=== PATIENT | female | born 1945 | race Caucasian/White ===

== ENCOUNTER 2020-04-27 22:18 | Emergency (ER) | payer MEDICARE, BC ==
[2020-04-27] MEDS ORDERED: Simethicone 80 MG Tab.Chew PO ONE (22:42)
--- NOTE | 2020-04-27 22:48 | EDM.PDOC ---
ED HPI GENERAL MEDICAL PROBLEM - General Chief Complaint: Gastrointestinal Problem Stated Complaint: NAUSEA Time Seen by Provider: 04/27/20 22:35 Source of Information: Reports: Patient, Family History Limitations: Reports: No Limitations - History of Present Illness INITIAL COMMENTS - FREE TEXT/NARRATIVE: Patient presents the ER today with chief complaint of generalized abdominal pain she rates about a 6 out of 10 that started about 330 or 4:00 today about 20 to 30 minutes after eating some blueberry pie. She describes it as intermittent pain that comes and goes it may last anywhere from 30 minutes to hour and then goes back down to about a 3 out of 10. She states she has had increased gas but had a normal bowel movement today with no issues. States she has had some intermittent nausea but denies any at this point now. She denies fever but has had intermittent bouts of chills. She denies any rectal bleeding or dark tarry stools no vomiting states she did try to eat some soup for supper but could not. She denies any cough shortness of breath or wheezing change of taste or smell or loss of she denies being around any Covid exposure. Onset: Today Duration: Hour(s): Location: Reports: Abdomen Quality: Reports: Dull, Pressure Improves with: Reports: Rest Worsens with: Reports: None Associated Symptoms: Reports: Fever/Chills, Nausea/Vomiting. Denies: Confusion, Chest Pain, Cough, cough w sputum, Diaphoresis, Headaches, Loss of Appetite, Shortness of Breath, Syncope Middle Abdominal Pain Score (Numeric/FACES): 7 - Related Data Allergies Allergy/AdvReac Type Severity Reaction Status Date / Time No Known Allergies Allergy Verified 04/27/20 22:31 Home Meds: Home Meds Calc/D3/Mag/Zn/[place]/Ismael/Shelby [Calcium 600 MG Plus Vit D] 1 each PO DAILY 04/27/20 [History] Cholecalciferol (Vitamin D3) [Vitamin D3] 2,000 unit PO DAILY 04/27/20 [History] Fish Oil/Strawn-3 Fatty Acids [Fish Oil 1,000 MG] 1 each PO DAILY 04/27/20 [History] Levothyroxine [Synthroid] 88 mcg PO ACBREAKFAST 04/27/20 [History] Licorice Root Extract [Licorice Root] 5 tab MC DAILY 04/27/20 [History] Magnesium Amino Acid Chelate [Magnesium] 300 mg PO DAILY 04/27/20 [History] Multivitamin 1 each PO DAILY 04/27/20 [History] Phytonadione [Vitamin K] 100 mcg PO DAILY 04/27/20 [History] Progesterone,Micronized [Prometrium] 600 mg PO BEDTIME 04/27/20 [History] Past Medical History Endocrine/Metabolic History: Reports: Hypothyroidism - Past Surgical History Female Surgical History: Reports: Hysterectomy Social & Family History - Tobacco Use Tobacco Use Status *Q: Never Tobacco User ED ROS GENERAL - Review of Systems Review Of Systems: See Below Constitutional: Reports: Chills. Denies: Fever, Malaise, Weakness, Fatigue, Night Sweats, Diaphoresis, Decreased Appetite, Weight Loss HEENT: Reports: No Symptoms Respiratory: Reports: No Symptoms Cardiovascular: Reports: No Symptoms Endocrine: Reports: No Symptoms GI/Abdominal: Reports: Abdominal Pain, Flatus, Nausea. Denies: Black Stool, Bloody Stool, Constipation, Diarrhea, Decreased Appetite, Distension, Hematemesis, Hematochezia, Melena, Vomiting : Reports: No Symptoms Musculoskeletal: Reports: No Symptoms Skin: Reports: No Symptoms Neurological: Reports: No Symptoms Psychiatric: Reports: No Symptoms Hematologic/Lymphatic: Reports: No Symptoms Immunologic: Reports: No Symptoms ED EXAM, GI/ABD - Physical Exam Exam: See Below Exam Limited By: No Limitations General Appearance: Alert, WD/WN, Other (mild discomfort noted ) Eyes: Bilateral: Normal Appearance, EOMI Ears: Normal External Exam Nose: Normal Inspection, Normal Mucosa, No Blood Throat/Mouth: Normal Inspection, Normal Lips, Normal Teeth, Normal Gums, Normal Oropharynx, Normal Voice, No Airway Compromise, Other (mmm) Head: Atraumatic, Normocephalic Neck: Normal Inspection, Supple, Non-Tender, Full Range of Motion Respiratory/Chest: No Respiratory Distress, Lungs Clear, Normal Breath Sounds, No Accessory Muscle Use, Chest Non-Tender Cardiovascular: Normal Peripheral Pulses, Regular Rate, Rhythm, No Edema, No Gallop, No JVD, No Murmur, No Rub GI/Abdominal Exam: Soft, No Distention, No Abnormal Bruit, Tender, Other (neg pelvic rock heel slap mild ttp diffusly across abd , decreased BS ). No: Non- Tender, Guarding, Rigid, Rebound Back Exam: Full Range of Motion. No: CVA Tenderness (L), CVA Tenderness (R) Extremities: Normal Inspection, Normal Range of Motion, Non-Tender, No Pedal Edema, Normal Capillary Refill Neurological: Alert, Oriented, CN II-XII Intact, Normal Cognition Psychiatric: Normal Affect, Normal Mood Skin Exam: Warm, Dry, Intact, Normal Color, No Rash Course - Vital Signs Text/Narrative:: pt rechecked multiple times intermitting pain still rechecked after Bentyl some better LABS wbc 13.3 BMP WNL Bun 20 UA pos ketones Neg covid CT [facility] called [phone] Return to the emergency room if anything changes or gets worse spoke with Dr. Palma at 215 she is willing to accept transfer and care of the patient to [facility] Last Recorded V/S: Last Vital Signs Temp 37.2 C 04/27/20 23:54 Pulse 68 04/27/20 23:54 Resp 16 04/27/20 23:54 BP 149/78 H 04/27/20 23:54 Pulse Ox 98 04/27/20 23:54 - Orders/Labs/Meds Orders: Active Orders 24 hr Category Date Time Status EKG 12 Lead [EKG Documentation Completion] [RC] STAT Care 04/27/20 22:42 Active Abdomen Pelvis w Cont [CT] Stat Exams 04/28/20 00:07 Taken Labs: Laboratory Tests 04/27/20 04/27/20 04/27/20 Range/Units 22:33 23:20 23:20 WBC 13.3 H (4.0-10.0) x10^3/uL RBC 4.50 (4.00-5.50) x10^6/uL Hgb 14.3 (12.0-16.0) g/dL Hct 40.5 (33.0-47.0) % MCV 90.0 (78.0-93.0) fL MCH 31.8 (26.0-32.0) pg MCHC 35.3 (32.0-36.0) g/dL RDW Coeff of Charles 13.0 (10.0-15.0) % Plt Count 375 (130-400) x10^3/uL Neut % (Auto) 84.0 H (50.0-80.0) % Lymph % (Auto) 12.1 L (25.0-50.0) % [place] % (Auto) 3.4 (2.0-11.0) % Eos % (Auto) 0.3 (0.0-4.0) % Baso % (Auto) 0.2 (0.2-1.2) % Sodium 134 L (136-145) mmol/L Potassium 3.5 (3.5-5.1) mmol/L Chloride 98 (98-107) mmol/L Carbon Dioxide 24 (21-32) mmol/L Anion Gap 15.5 (10-20) mmol/L BUN 20 H (7-18) mg/dL Creatinine 0.9 (0.55-1.02) mg/dL Est Cr Clr Drug Dosing 43.03 mL/min Estimated GFR (MDRD) > 60 Glucose 118 H (74-106) mg/dL Calcium 9.6 (8.5-10.1) mg/dL Urine Color (YELLOW) Urine Appearance (CLEAR) Urine pH (5.0-8.0) Ur Specific [place] Urine Protein (NEGATIVE) mg/dL Urine Glucose (UA) (NEGATIVE) mg/dL Urine Ketones (NEGATIVE) mg/dL Urine Occult Blood (NEGATIVE) Urine Nitrite (NEGATIVE) Urine Bilirubin (NEGATIVE) Urine Urobilinogen (0.2) EU/dL Ur Leukocyte Esterase (NEGATIVE) Urine RBC (NOT SEEN) /HPF Urine WBC (NOT SEEN) /HPF Ur Squamous Epith Cells (NEGATIVE) /HPF Amorphous Sediment Urine Bacteria (NEGATIVE) /HPF Urine Mucus (NEGATIVE) /LPF SARS CoV-2 RNA Rapid AARON Negative (NEGATIVE) 04/27/20 Range/Units 23:45 WBC (4.0-10.0) x10^3/uL RBC (4.00-5.50) x10^6/uL Hgb (12.0-16.0) g/dL Hct (33.0-47.0) % MCV (78.0-93.0) fL MCH (26.0-32.0) pg MCHC (32.0-36.0) g/dL RDW Coeff of Charles (10.0-15.0) % Plt Count (130-400) x10^3/uL Neut % (Auto) (50.0-80.0) % Lymph % (Auto) (25.0-50.0) % [place] % (Auto) (2.0-11.0) % Eos % (Auto) (0.0-4.0) % Baso % (Auto) (0.2-1.2) % Sodium (136-145) mmol/L Potassium (3.5-5.1) mmol/L Chloride (98-107) mmol/L Carbon Dioxide (21-32) mmol/L Anion Gap (10-20) mmol/L BUN (7-18) mg/dL Creatinine (0.55-1.02) mg/dL Est Cr Clr Drug Dosing mL/min Estimated GFR (MDRD) Glucose (74-106) mg/dL Calcium (8.5-10.1) mg/dL Urine Color Yellow (YELLOW) Urine Appearance Turbid H (CLEAR) Urine pH 8.0 (5.0-8.0) Ur Specific [place] 1.020 Urine Protein Negative (NEGATIVE) mg/dL Urine Glucose (UA) Negative (NEGATIVE) mg/dL Urine Ketones 80 H (NEGATIVE) mg/dL Urine Occult Blood Negative (NEGATIVE) Urine Nitrite Negative (NEGATIVE) Urine Bilirubin Negative (NEGATIVE) Urine Urobilinogen 0.2 (0.2) EU/dL Ur Leukocyte Esterase Small H (NEGATIVE) Urine RBC 0-5 (NOT SEEN) /HPF Urine WBC 5-10 H (NOT SEEN) /HPF Ur Squamous Epith Cells Rare (NEGATIVE) /HPF Amorphous Sediment Many Urine Bacteria Rare (NEGATIVE) /HPF Urine Mucus Rare H (NEGATIVE) /LPF SARS CoV-2 RNA Rapid AARON (NEGATIVE) Meds: Medications Discontinued Medications Generic Name Dose Route Start Last Admin Trade Name Freq PRN Reason Stop Dose Admin Dicyclomine HCl 10 mg 04/28/20 00:08 04/28/20 00:17 Bentyl PO 04/28/20 00:09 10 mg ONETIME ONE Administration Simethicone 160 mg 04/27/20 22:42 04/27/20 22:53 Simethicone PO 04/27/20 22:43 160 mg ONETIME ONE Administration Departure - Departure Time of Disposition: 02:00 Disposition: DC/Tfer to Acute Hospital 02 Condition: Good Clinical Impression: Small bowel obstruction, partial, Nausea & vomiting - Discharge Information Referrals: Yecenia Castillo MD [Primary Care Provider] - Forms: ED Department Discharge Sepsis Event Note (ED) - Evaluation Sepsis Screening Result: No Definite Risk - Focused Exam Vital Signs: Vital Signs Temp Pulse Resp BP Pulse Ox 04/27/20 23:54 37.2 C 68 16 149/78 H 98 04/27/20 22:32 36.7 C 72 16 103/82 98 - Problem List & Annotations (1) Nausea & vomiting SNOMED Code(s): 42020223 Code(s): R11.2 - NAUSEA WITH VOMITING, UNSPECIFIED Status: Acute Current Visit: Yes (2) Small bowel obstruction, partial SNOMED Code(s): 548036174 Code(s): K56.600 - PARTIAL INTESTINAL OBSTRUCTION, UNSPECIFIED TO CAUSE Status: Acute Current Visit: Yes - My Orders Last 24 Hours: My Active Orders 04/27/20 22:42 EKG 12 Lead [EKG Documentation Completion] [RC] STAT 04/28/20 00:07 Abdomen Pelvis w Cont [CT] Stat - Assessment/Plan Last 24 Hours: My Active Orders 04/27/20 22:42 EKG 12 Lead [EKG Documentation Completion] [RC] STAT 04/28/20 00:07 Abdomen Pelvis w Cont [CT] Stat
[2020-04-27 23:40] LABS: CHLORIDE,CL 98 mmol/L (98-107); SODIUM,NA 134 mmol/L (136-145)
[2020-04-27 23:44] LABS: ANION GAP 15.5 mmol/L (10-20)
[2020-04-28] MEDS ORDERED: Dicyclomine 10 MG Cap PO ONE (00:08)
[2020-04-28] MEDS ORDERED: Sodium Chloride 0.9% 1,000 ML IV ONE (02:10)
[2020-04-28] MEDS ORDERED: Morphine 4 MG/ML Syringe IVPUSH ONE (02:10)
[2020-04-28] MEDS ORDERED: Ondansetron 8 MG in Sodium Chloride 0.9% 100 ML IV ONE (02:10)
[2020-04-28] MEDS ORDERED: Iopamidol 612 MG/ML 100 ML Bottle IVPUSH ONE (08:57)
--- NOTE | 2020-04-28 17:50 | CT ---
[id number] CT/CT Abdomen Pelvis W IV EXAM: CT Abdomen Pelvis W IV CLINICAL DATA: ABDOMINAL PAIN COMPARISON: NO PREVIOUS SIMILAR EXAM IS AVAILABLE. FINDINGS: There is a right inguinal hernia resulting in small bowel obstruction There is no free air or free fluid The liver and spleen, kidneys and adrenals, pancreas and aorta are unremarkable There are surgical changes of the lumbar spine The pelvis shows no mass or adenopathy The appendix is not seen There is no evidence of appendicitis IMPRESSION: RIGHT INGUINAL HERNIA WITH SMALL BOWEL OBSTRUCTION REPORT PROVIDED AT TIME OF EXAM Arjun Vargas MD 04/28/20 0943 Thank you for allowing us to participate in the care of your patient.
== END 2020-04-28 03:00 | disposition short-term general hospital (02) ==
LOC: VM.ED 22:18
DX: K56.600 Partial intestinal obstruction, unspecified as to cause (principal); E03.9 Hypothyroidism, unspecified; Z79.899 Other long term (current) drug therapy; Z20.822 Contact with and (suspected) exposure to COVID-19
CPT/HCPCS: 36415; 74177; 80048; 81001; 85025; 93005; 96365; 96375; 99284; 99285-25; A9270-GY; J2270; J2405; J7030; Q9967; U0002

== ENCOUNTER 2024-10-20 08:14 | Emergency (ER) | payer MEDICARE, BC ==
[2024-10-20] MEDS ORDERED: Sodium Chloride 0.9% 10 ML Syringe FLUSH PRN (08:50)
[2024-10-20 09:06] LABS: BASOPHILS PERCENT AUTO 0.6 % (0.2-1.2); EOSINOPHILS ABSOLUTE AUTO 0.2 x10^3/uL (0.0-0.5); EOSINOPHILS PERCENT AUTO 5.1 % (0.0-4.0); HEMATOCRIT 38.1 % (33.0-47.0); HEMOGLOBIN 13.3 g/dL (12.0-16.0); LYMPHOCYTES ABSOLUTE AUTO 1.4 x10^3/uL (1.0-4.8); MEAN CORPUSCULAR HEMOGLOBIN 32.8 pg (26.0-32.0); MEAN CORPUSCULAR HGB CONC 34.9 g/dL (32.0-36.0); MEAN CORPUSCULAR VOLUME 94.1 fL (78.0-93.0); MONOCYTES ABSOLUTE AUTO 0.4 x10^3/uL (0.0-0.8); MONOCYTES PERCENT AUTO 8.7 % (2.0-11.0); NEUTROPHILS ABSOLUTE AUTO 2.7 x10^3/uL (1.8-7.7); NEUTROPHILS PERCENT AUTO 56.6 % (50.0-80.0); PLATELET COUNT,PLT 249 x10^3/uL (130-400); RED BLOOD CELL COUNT 4.05 x10^6/uL (4.00-5.50); WHITE BLOOD CELL COUNT,WBC 4.7 x10^3/uL (4.0-10.0)
[2024-10-20 09:28] LABS: A/G RATIO 0.91; ALBUMIN 3.1 g/dL (3.4-5.0); ANION GAP 11.2 mmol/L (5-15); BILIRUBIN TOTAL 0.5 mg/dL (0.2-1.0); CALCIUM 9.1 mg/dL (8.5-10.1); CREATININE 0.7 mg/dL (0.55-1.02); EST CRCL DRUG DOSING (CG) 49.85 mL/min; POTASSIUM,K 4.2 mmol/L (3.5-5.1); PROTEIN TOTAL,TP 6.5 g/dL (6.4-8.2)
[2024-10-20] MEDS: Iopamidol 755 Mg/ML 100 ML Bottle IVPUSH ONE (10:10)
[2024-10-20] MEDS: Sodium Chloride 0.9% 1,000 ML IV ONE (10:22)
== END 2024-10-20 11:20 | disposition home or self-care (01) ==
LOC: VM.ED 08:14
DX: R07.2 Precordial pain (principal); E03.9 Hypothyroidism, unspecified; Z90.710 Acquired absence of both cervix and uterus; Z79.899 Other long term (current) drug therapy
CPT/HCPCS: 71275; 80053; 83690; 84484; 85025; 93005; 93010; 99284; 99285; J7030; Q9967